=== PATIENT | male | born 1970 | race Caucasian/White ===

== ENCOUNTER 2023-07-24 08:39 | Inpatient (IN) ==
--- NOTE | 2023-06-22 12:43 | PAT Medication Instructions ---
Medication Instructions Date of Service June 22, 2023 Home Medications bupropion HCl 150 mg tablet,12 hr sustained-release (Wellbutrin SR) 150 mg PO BID simvastatin 40 mg tablet 40 mg PO QAM Take morning of surgery With a small sip of water, OTHERWISE NOTHING TO EAT OR DRINK AFTER MIDNIGHT: bupropion HCl 150 mg tablet,12 hr sustained-release (Wellbutrin SR) 150 mg PO BID simvastatin 40 mg tablet 40 mg PO QAM Take evening before surgery bupropion HCl 150 mg tablet,12 hr sustained-release (Wellbutrin SR) 150 mg PO BID Other Notes If you have any questions please call us at [phone] or [phone] or [phone] or [phone]
--- NOTE | 2023-07-05 11:58 | Anesthesiology Consultation ---
Date of Service July 05, 2023 Assessment & Plan (1) Encounter for pre-operative examination: Plan - awaiting [place] cardiology pre-operative evaluation 07/06/23. - [facility] ER 07/05/23: "...feeling tired and rundown for the past 2 weeks interm ittently...intermittently can feel a fluttering in his chest...having back surgery and they performed an EKG and found him to be in A-fib and referred him to the ER...Labs show mild leukocytosis 11.5 thousand...converted on his own while in the ER. Rate was in the 50s. [id number] 2 was 0. I discussed with Dr. Cody Paris from cardiology. Recommends no anticoagulation and metoprolol 25 mg XR and following up with his office as an outpatient. Patient was given a dose of metoprolol while here after he had converted. Discussed with the patient and he expressed understanding..." - new afib in PAT clinic, rate varying 95-118 bpm. I spoke with patient who states that he has been feeling tired over the past month-denied evaluation of this. Denies chest discomfort, shortness of breath, dizziness or lightheadedness. Denies any previous history of arrhythmia. He notes that previous imaging showed "calcifications in his vessels, carotid maybe." He remained stable in [facility] and we discussed risks of afib, he is agreeable to ER evaluation and was transported by wheelchair. Detailed report called to Kristin. - Patient and surgeon's office made aware patient will need cardiology evaluati on prior to surgery. - surgeon ordered PCP pre-operative evaluation. Chart Review Chart Review: Pending: Refer to Additional Notes / Consult section and Patient seen in Pre Admission Testing Teaching & Discussion Pre-Anesthesia Teaching/Discussion Notes: Instructed NPO after midnight before surgery, except medications with 15 cc of water. Medication instructions provided according to the PAT guidelines. History Surgery Operation Date: 07/24/23 07:45 Proposed Procedures p L5-S1 Decompression and Fusion, Spinal Cord Monitoring - Chano Pisano DO Height/Weight Height: 5 ft 10 in Weight: 119.6 kg Allergies Allergy/AdvReac Type Severity Reaction Status Date / Time No Known Allergies Allergy Verified 06/21/23 13:07 Medications Home Medications Medication Instructions Recorded Confirmed Last Taken bupropion HCl 150 mg tablet,12 hr 150 mg PO BID 06/21/23 06/21/23 Unknown sustained-release (Wellbutrin SR) simvastatin 40 mg tablet 40 mg PO QAM 06/21/23 06/21/23 Unknown metoprolol succinate 25 mg 25 mg PO DAILY #30 tabs 07/05/23 Unknown tablet,extended release 24 hr Past Medical History Medical History (Updated 07/06/23 @ 08:30 by Abby Santana PA-C) Disc degeneration, lumbar has numbness in left leg and occasional falls (no head injuries)-denies change or worsening History of COVID-19 (2020) not hospitalized, mild Hyperlipemia Paroxysmal A-fib at times in RVR Patient denies h/o stroke, seizures, heart attack, heart failure, DM, HTN, blood clots/DVTs or blood transfusions. Exercise / Class Metabolic Activity II 4-5 Yardwork/Stairs/Walk up hill (denies chest discomfort or shortness of breath with one flight of stairs) Past Surgical History Surgical History History of laparoscopic appendectomy (1991) Past Anesthesia History No Hx of Anesthesia Complications and No Family Hx of Anesthesia Complications History of PONV No Hx of PONV and No Hx of Motion Sickness Social History Smoking Status: Former smoker Do You Dip or Chew Tobacco: No Smoking End Date: Quit 06/11/23 - smoked 1 PPD ( on wellbutrin for this) Hx Alcohol Use: No Hx Substance Use: No substance use type: does not use Review of Systems Patient denies chest pain, shortness of breath, dyspnea on exertion, snoring, witnessed apneas, reflux, fever, chills, cough, or wheezing. Physical Exam Vital Signs Vitals BP 136/95 P 69 TEMP 97 SP02 97% on RA RESP 97.8 Physical Patient resting comfortably in chair in no acute distress, alert and oriented, responding appropriately throughout visit Full cervical extension range of motion without pain TMD 3.5 finger breadths Mallampati Score 2 Dentition: intact, denies chipped or loose teeth, caps/crowns, implants or bridges Lungs: normal respiratory effort. Good air movement, clear throughout to auscultation, no adventitious breath sounds Cardiac: irregularly irregular rhythm, no murmurs noted Carotid arteries: negative bruit bilat Lab Results Anesthesia Preop Results Results Anesthesia Widget: WBC 11.59 K/ul (4.8-10.8) H 07/05/23 Hgb 16.3 g/dl (14.0-18.0) 07/05/23 Hct 47.0 % (42.0-52.0) 07/05/23 Plt 185 K/uL (130-400) 07/05/23 Na 140 mmol/L (136-145) 07/05/23 K 4.7 mmol/L (3.5-5.1) 07/05/23 Cl 105 mmol/L (98-107) 07/05/23 CO2 29 mmol/L (21-32) 07/05/23 BUN 15 mg/dl (6-23) 07/05/23 Creat 1.31 mg/dl (0.6-1.4) 07/05/23 Glucose Level 83 mg/dl (70-99(Fasting)) 07/05/23 PT 10.3 Seconds (9.0-12.0) 07/05/23 PTT 27 Seconds (21-31) 07/05/23 INR 0.9 (0.9-1.1) 07/05/23 Urine Color Yellow 07/05/23 Urine Appearance Clear (Clear) 07/05/23 Urine pH 6.0 (4.5-7.5) 07/05/23 Urine Specific [place] 1.004 (1.000-1.030) 07/05/23 Urine Protein Negative (Negative) 07/05/23 Urine Glucose (UA) Negative (Negative) 07/05/23 Urine Ketones Negative (Negative) 07/05/23 Urine Blood Negative (Negative) 07/05/23 Urine Nitrite Negative (Negative) 07/05/23 Urine Bilirubin Negative (Negative) 07/05/23 Urine Urobilinogen Negative (Negative) 07/05/23 Urine Leukocyte Esterase Negative (Negative) 07/05/23 Blood Type O Positive 07/05/23 Antibody Screen NEGATIVE 07/05/23 Testing Electrocardiogram Date: 07/05/23 Afib with RVR, rate 119 bpm Chest X-Ray Date: 07/05/23 *1view* No acute cardiopulmonary findings.
[2023-07-24] MEDS ORDERED: ROCURONIUM BROMIDE 10 MG/ML 5 ML VIAL IV ONE ×2 (09:29→11:20)
[2023-07-24] MEDS ORDERED: GLYCOPYRROLATE 0.2 MG/ML VIAL ONE (09:29)
[2023-07-24] MEDS ORDERED: ONDANSETRON INJ 2 MG/ML 2 ML VIAL ONE (09:29)
[2023-07-24] MEDS ORDERED: PROPOFOL IV EMULSION 10 MG/ML 20 ML VIAL IV ONE (09:29)
[2023-07-24] MEDS ORDERED: MIDAZOLAM HCL 1 MG/ML 2ML VIAL ONE (09:29)
[2023-07-24] MEDS ORDERED: fentaNYL citrate PF 100 MCG/2 ML VIAL ONE (09:29)
[2023-07-24] MEDS ORDERED: SUGAMMADEX SODIUM 200 MG/2 ML VIAL IV ONE ×2 (09:30→10:57)
[2023-07-24] MEDS: LR 15ML/HR IV SCH (09:40)
[2023-07-24] MEDS: GABAPENTIN 900 MG DOSE PO SCH (09:40)
[2023-07-24] MEDS: CeleBREX 200 MG CAP PO SCH (09:41)
[2023-07-24] MEDS: ACETAMINOPHEN 500 MG TAB PO SCH (09:41)
--- NOTE | 2023-07-24 10:12 | History & Physical Report ---
Date of Service July 24, 2023 Assessment & Plan (1) Neurogenic claudication due to lumbar spinal stenosis: Plan: L5-S1 decompression and fusion History of Present Illness Chief Complaint: Back and leg pain Primary Care Provider: AMARA Hernandez This is a 73-year-old male presents with chronic persistent back and leg pain after failing course of nonoperative care is here for surgical invention. Allergies Allergy/AdvReac Type Severity Reaction Status Date / Time No Known Allergies Allergy Verified 07/24/23 09:17 Home Medications Medication Instructions Recorded Confirmed Type bupropion HCl 150 mg tablet,12 hr 150 mg PO BID 06/21/23 07/24/23 History sustained-release (Wellbutrin SR) metoprolol succinate 25 mg 25 mg PO DAILY #30 tabs 07/05/23 07/24/23 Rx tablet,extended release 24 hr simvastatin 40 mg tablet 20 mg PO QAM 07/06/23 07/24/23 History Past Med/Surg History Problem List (Updated 07/24/23 @ 10:11 by Chano Pisano DO) Neurogenic claudication due to lumbar spinal stenosis Anticoagulation therapy not indicated Sleep apnea Encounter for pre-operative examination Medical History Disc degeneration, lumbar History of COVID-19 (2020) Hyperlipemia Surgical History History of laparoscopic appendectomy (1991) Social History Smoking Status: Former smoker Tobacco Type: Cigarettes Smoking End Date: Quit 06/11/23 - smoked 1 PPD ( on wellbutrin for this); Second Hand Exposure: No; Do You Dip or Chew Tobacco: No; Tobacco Cessation Education Requested by Patient: No Hx Alcohol Use: No Hx Substance Use: No Preferred Language: [place] Communication Ability: Effective Neon Glass Bender Required: No Beliefs That Will Affect Care: None Current Living Situation: Significant Other Other Information That Helps Us Care for You: No Feels Safe at Home: Yes Safety Concerns: Feels Safe At This Time Assistive Devices: Glasses Physical Exam Physical Exam: Patient is alert and oriented Heart regular in rhythm Lungs clear Results & Data Results & Data Vital Signs (Past 12 Hours) Vital Signs Temp Pulse Resp BP Pulse Ox O2 Del Method 07/24/23 09:21 36.5 C 52 L 17 126/87 98 Room Air
--- NOTE | 2023-07-24 10:12 | History & Physical Bridge Note ---
Date of Service July 24, 2023 History & Physical Bridge Note I have examined the patient, reviewed the History & Physical and in the interval since the performance of the History & Physical I have noted the following changes of clinical significance: no changes noted
[2023-07-24] MEDS ORDERED: ONDANSETRON INJ 2 MG/ML 2 ML VIAL IV PRN ×2 (10:18→14:33)
[2023-07-24] MEDS ORDERED: ATROPINE SULFATE 0.1 MG/ML 10ML SYR IV PRN (10:18)
[2023-07-24] MEDS ORDERED: DROPERIDOL 5 MG/2 ML VIAL IV PRN (10:18)
[2023-07-24] MEDS: ceFAZolin 2000MG 2,000 MG/15 ML SYR IV SCH ×2 (10:53→19:29)
[2023-07-24] MEDS ORDERED: DEXAMETHASONE SOD INJ 4 MG/ML VIAL ONE (10:56)
[2023-07-24] MEDS ORDERED: KETAMINE HCL 10MG/ML SYR ONE (10:56)
[2023-07-24] MEDS: BUPIVACAINE/EPINEPHRINE 0.25% 1:200,000 30 ML VIAL ONE (11:19)
[2023-07-24] MEDS: ceFAZolin 330 MG/ML 1 GM VIAL ONE (12:13)
[2023-07-24] MEDS: FLOSEAL HEMOSTATIC MATRIX 10ML TOP ONE (12:23)
--- NOTE | 2023-07-24 12:23 | Operative Report ---
Post Operative Report Pre & Post Diagnosis Operation Date: 07/24/23 10:35 Pre-Op Diagnosis: Neurogenic Claudication due to Lumbar Spinal Stenosis Post-Op Diagnosis: Neurogenic Claudication due to Lumbar Spinal Stenosis I identified the patient and participated in the time-out.: Yes Procedure Operation Date: 07/24/23 10:35 Actual Procedures #1 lumbar decompression with bilateral medial facetectomies and foraminotomies L4-L5 L5-S1. #2 posterior spinal fusion L5-S1. #3 placed posterior instrumentation L5-S1. #4 interbody fusion L5-S1. #5 placement of Spira 15 x 26 mm x 2 at L5-S1. #6 placement locally harvested morselized autograft and posterior gutters. #7 placement of infuse collagen sponge combined with Koros in the posterior lateral gutters and Morpheus bone graft interbody space. Surgeon Chano Pisano, DO Bag Patcher Stacie Yepez Estimated Blood Loss 200 Findings See Below Patient is 5 foot 10 weighing over 119 kg with a BMI in excess of 37. The patient's body habitus did contribute to significant technical difficulty with positioning exposure and the procedure itself and at least 50% increased operative time. Specimens None Indications This is a 53-year-old male presents above-mentioned diagnosis of failed course of nonoperative care is here for surgical invention. Description of Procedure Patient was met with identified informed consent obtained. Patient was then taken to the operative suite underwent patient placed in a prone position on the Giovanny table on top of the Scott frame. All bony prominences well-padded eyes inspected to ensure no external precipice spinal. This point the lumbar spine was prepped and draped in a sterile fashion. Sharp dissection with the assistance of Bovie cautery form down to and exposing the lamina transverse processes of L5 and sacral ala bilaterally. From caudal cephalad fashion complete laminectomy of L5 was performed including bilateral medial facetectomies and foraminotomies addressing severe lateral recess and foraminal stenosis. Then performed a partial laminectomy of L4 including bilateral medial facetectomies addressing all lateral recess disease. Pedicle screws were then placed in L5 and S1 levels bilaterally with assistance of fluoroscopy and appropriate size samra placed. By way of transfer approach right discectomy L5-S1 was performed endplates. To subcortical mean bone and a 15 x 26 mm spiral cage filled with Morpheus bone graft tapped in position. Then proceeded to the left transforaminal region at L5-S1. Discectomy performed endplates guarded to subcortical bleeding bone and a second 15 x 26 mm spiral cage filled with Morpheus bone graft tapped in position. The rods were then locked in final position bilaterally. The transverse processes of L5 and sacral ala burred to subcortical bleeding bone. Infuse collagen sponge, with Koros and local autograft placed in the posterior gutters. 15 round DEV inserted. The incision was then closed with 1 Vicryl in the fascia 2-0 Vicryl subcutaneously and 4 Monocryl for final skin closure. Steri-Strips sterile dressing placed. Patient waken taken PACU stable condition. Please note spinal cord monitoring was utilized at the procedure no changes noted. Lastly Stacie Yepez was present at the entire surgery involved the patient positioning complex portions of the surgery and final skin closure. I attest to the content of the Intraoperative Record and any orders documented therein. Any exceptions are noted below.
[2023-07-24] MEDS: HYDROmorphone INJ 1 MG/ML SYRINGE IV PRN ×2 (12:51→13:11)
[2023-07-24] MEDS ORDERED: HYDROmorphone INJ 0.5 MG/0.5 ML SYR IV PRN ×2 (13:12→14:33)
--- NOTE | 2023-07-24 13:34 | Fluoroscopy Report ---
FL lumbar spine 2-3V CLINICAL HISTORY: L5-S1 DECOMP AND FUSION TECHNIQUE: 2 views were obtained with the C-arm in the OR with the above procedure. Total fluoroscopy time was 20.9 seconds. Radiation dose was 20.4 mGy. Comparison: None available at the time of this dictation. FINDINGS/IMPRESSION: Intraoperative images were obtained of L5-S1 decompression and fusion. Please correlate with intraoperative fluoroscopy and operative report. ACT 112: Negative or not required by law. Electronically signed by: Omar Hastings M.D. 07/24/2023 1:33 PM
--- NOTE | 2023-07-24 13:46 | Anesthesiology Progress Note ---
Date of Service July 24, 2023 Anesthesia Post Procedure Vital Signs Vital Signs: Temp Pulse Pulse Resp BP Pulse Ox O2 Del Method 07/24/23 13:15 57 L 12 117/75 91 Room Air 07/24/23 13:05 62 16 109/75 97 Oxymask 07/24/23 12:55 64 13 110/70 99 Oxymask 07/24/23 12:45 67 16 120/72 98 Oxymask 07/24/23 12:37 36.0 C L 65 14 146/98 H 98 Oxymask 07/24/23 09:21 36.5 C 52 L 17 126/87 98 Room Air O2 Flow Rate 07/24/23 13:15 07/24/23 13:05 2 07/24/23 12:55 2 07/24/23 12:45 4 07/24/23 12:37 6 07/24/23 09:21 Pain Intensity Left Lower Back: Pain Intensity: 6 Transfer of Care Handoff Completed per policy Notes Mental Status: alert / awake / arousable Patient Amnestic to Procedure: Yes Nausea / Vomiting: adequately controlled Pain: adequately controlled Airway Patency, RR, SpO2: stable & adequate BP & HR: stable & adequate Hydration State: stable & adequate Anesthetic Complications: no major complications apparent
--- NOTE | 2023-07-24 14:08 | Anesthesiology Progress Note ---
Date of Service July 24, 2023 Anesthesia Post Procedure Vital Signs Vital Signs: Temp Pulse Pulse Resp BP Pulse Ox O2 Del Method 07/24/23 14:00 46 L 15 115/80 94 Nasal Cannula 07/24/23 13:45 36.2 C L 52 L 12 109/78 94 Nasal Cannula 07/24/23 13:35 47 L 15 107/69 95 Nasal Cannula 07/24/23 13:25 63 15 107/79 91 Nasal Cannula 07/24/23 13:15 57 L 12 117/75 91 Room Air 07/24/23 13:05 62 16 109/75 97 Oxymask 07/24/23 12:55 64 13 110/70 99 Oxymask 07/24/23 12:45 67 16 120/72 98 Oxymask 07/24/23 12:37 36.0 C L 65 14 146/98 H 98 Oxymask 07/24/23 09:21 36.5 C 52 L 17 126/87 98 Room Air O2 Flow Rate 07/24/23 14:00 2 07/24/23 13:45 2 07/24/23 13:35 2 07/24/23 13:25 2 07/24/23 13:15 07/24/23 13:05 2 07/24/23 12:55 2 07/24/23 12:45 4 07/24/23 12:37 6 07/24/23 09:21 Pain Intensity Left Lower Back: Pain Intensity: 6 Transfer of Care Handoff Completed per policy Notes Mental Status: alert / awake / arousable Patient Amnestic to Procedure: Yes Nausea / Vomiting: adequately controlled Pain: adequately controlled Airway Patency, RR, SpO2: stable & adequate BP & HR: stable & adequate Hydration State: stable & adequate Anesthetic Complications: no major complications apparent
[2023-07-24] MEDS ORDERED: ALUMINUM/MAGNESIUM SUSP 30 ML UDC PO PRN (14:33)
[2023-07-24] MEDS ORDERED: bisacodyL 10 MG SUPP PR PRN (14:33)
[2023-07-24] MEDS ORDERED: traMADol HCL 50 MG TABLET PO PRN (14:33)
[2023-07-24] MEDS ORDERED: FAMOTIDINE 20 MG TAB PO PRN (14:33)
[2023-07-24] MEDS ORDERED: NALOXONE HCL 0.4 MG/1 ML VIAL/CARP IV PRN (14:33)
[2023-07-24] MEDS ORDERED: hydrOXYzine HCl 25 MG TAB PO PRN (14:33)
[2023-07-24] MEDS ORDERED: PROMETHAZINE HCL 12.5 MG in SODIUM CHLORIDE 0.9% 50 ML IV PRN (14:33)
[2023-07-24] MEDS ORDERED: DO NOT ADMINISTER FLU VACCINE PRN (14:33)
[2023-07-24] MEDS ORDERED: ACETAMINOPHEN 1,000 MG/100 ML VIAL IV PRN (14:33)
[2023-07-24] MEDS ORDERED: ONDANSETRON 4 MG OD TAB PO PRN (14:33)
[2023-07-24] MEDS ORDERED: METOCLOPRAMIDE HCL INJ 5 MG/ML 2 ML VIAL IV PRN (14:33)
[2023-07-24] MEDS ORDERED: LORazepam 0.5 MG TAB PO PRN (14:33)
[2023-07-24] MEDS ORDERED: DO NOT ADMINISTER PNEUMOCOCCAL VACCINE PRN (14:33)
[2023-07-24] MEDS ORDERED: SOD PHOSPHATE/SOD BIPHOSPHATE ENEMA 132 ML BTL PR PRN (14:33)
[2023-07-24] MEDS ORDERED: HYDROmorphone INJ 1 MG/ML SYRINGE IV PRN (14:33)
[2023-07-24] MEDS ORDERED: ACETAMINOPHEN 500 MG TAB PO PRN (14:33)
[2023-07-24] MEDS ORDERED: MAGNESIUM HYDROXIDE SUSP 30 ML UDC PO PRN (14:33)
[2023-07-24] MEDS ORDERED: LORazepam 0.5 MG in SYRINGE 0.25 ML IV PRN (14:33)
[2023-07-24] MEDS ORDERED: diphenhydrAMINE Capsule 25 MG CAP PO PRN (14:33)
[2023-07-24] MEDS: LR 60ML/HR IV SCH (15:08)
[2023-07-24] MEDS: LACTATED RINGER'S 1,000 ML IV SCH (15:10)
[2023-07-24] MEDS: KETOROLAC 30 MG/ML VIAL IV SCH (15:15)
--- NOTE | 2023-07-24 15:41 | Consultation ---
Date of Consultation July 24, 2023 Assessment & Plan (1) Neurogenic claudication due to lumbar spinal stenosis: (2) S/P lumbar spine operation: Jose Javier is a 53y/o M with PMHx of paroxysmal afib, hyperlipidemia, tobacco use disorder and other problems listed below who was referred to us for further post-operative medical management. Patient is s/p L5-S1 decompression and fusion w/ Dr. Pisano for treatment of neurogenic claudication 2/2 lumbar spine stenosis. POD#0, EBL: 200mL -Activity and wound care orders as per ortho -Pain control with bowel regimen as per ortho -PT consulted, repeat CBC/BMP in AM as per ortho -Monitor H/H for acute blood loss anemia and transfuse blood products PRN -Clear liquid diet as per ortho -Hemodynamically stable at this time (3) Paroxysmal atrial fibrillation: -Patient follows / [facility] Cardiology --> He is waiting to undergo sleep study to r/o sleep apnea as a potential cause of his PAF. 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 Powell. Please see addendum. I spent a total of 75 minutes coordinating, documenting, and providing care for this patient excluding time spent in the performance of separately billed services. This included personally reviewing all current laboratories and imaging studies, medical reconciliation, outpatient chart review and discussion with specialists. This chart was completed in part utilizing Speech Voice Recognition Software. Grammatical errors, random word insertions, pronoun errors, and incomplete sentences are an occasional consequence of this system due to software limitations, ambient noise, and hardware issues. Any formal questions or concerns about the content, text, or information contained within the body of this dictation should be directly addressed to the provider for clarification. Supervising Physician Co-Signing Physician Notes Patient was seen and examined at bedside as a consult for medical management after spinal surgery. Patient reports improvement in his LLE radicular pain, denies any febrile illness in the recent past. Patient reports operative site pain under control. Patient is hemodynamically stable and feels better. On examination: GENERAL: Alert and oriented x3. NAD, on RA.Obese class II HEENT: No pallor, no icterus. Pupils equal, round and reactive to light. Oral mucosa moist. NECK: No JVD, no neck masses. HEART: S1 and S2 heard. Regular rate and rhythm. No murmur, no gallop. RESPIRATORY SYSTEM: Normal AP diameter. No accessory muscle use. No wheezing, no crackles. ABDOMEN: Soft, bowel sounds present, nontender, no distention. CENTRAL NERVOUS SYSTEM: No facial droop. Speech is clear. Obeys simple commands. Moves extremities. EXTREMITIES: No edema, no erythema seen. Low back with clean dressing without soakage. DEV drain with moderate serosanguineous collection noted. I have seen and examined the patient and have discussed the case with the provider above. I agree with the assessment and plan as stated. History of Present Illness Requesting Physician: Chano Pisano DO Reason for Consultation: Post-Operative Medical Management Attending Physician: Chano Pisano DO History of Present Illness Jose Javier is a 53y/o M with PMHx of paroxysmal afib, hyperlipidemia, tobacco use disorder and other problems listed below who was referred to us for further post-operative medical management. Patient is s/p L5-S1 decompression and fusion w/ Dr. Pisano for treatment of neurogenic claudication 2/2 lumbar spine stenosis. History obtained from patient and associated chart review. Patient seen at bedside. Patient currently endorsing some discomfort/mild pressure in his lumbar region, but denies any pain. No SOB or chest pain. Has not yet urinated since being out of surgery. 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 Denies any abdominal pain. Tolerating liquids just fine, not complaining of any dysphagia concerns. Already had his DEV drain emptied once. Has not yet been out of bed, but wants to do so when able. Has no major complaints at this time, feeling well overall. Allergies Allergy/AdvReac Type Severity Reaction Status Date / Time No Known Allergies Allergy Verified 07/24/23 09:17 Home Medications Medication Instructions Recorded Confirmed Type bupropion HCl 150 mg tablet,12 hr 150 mg PO BID 06/21/23 07/24/23 History sustained-release (Wellbutrin SR) metoprolol succinate 25 mg 25 mg PO DAILY #30 tabs 07/05/23 07/24/23 Rx tablet,extended release 24 hr simvastatin 40 mg tablet 20 mg PO QAM 07/06/23 07/24/23 History Patient History Medical History Hyperlipidemia Tobacco use disorder Disc degeneration, lumbar has numbness in left leg and occasional falls (no head injuries)-denies change or worsening History of COVID-19 (2020) not hospitalized, mild Surgical History History of laparoscopic appendectomy (1991) Social History Smoking Status: Former smoker Tobacco Type: Cigarettes Smoking End Date: Quit 06/11/23 - smoked 1 PPD ( on wellbutrin for this); Second Hand Exposure: No; Do You Dip or Chew Tobacco: No; Tobacco Cessation Education Requested by Patient: No Hx Alcohol Use: No Hx Substance Use: No Preferred Language: Nauruan Communication Ability: Effective 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 Physical Exam Physical Exam: General Appearance: WD/WN, vitals as above, NAD, sitting up in bed, pleasant, conversing. Head: Normocephalic, atraumatic. Eyes: Normal inspection, PERRL, conjunctivae normal, anicteric sclerae. ENT: External ear and nose normal, oropharynx normal. Neck: Normal visual inspection, trachea midline, no thyromegaly. Respiratory: Normal respiratory effort, lungs clear to auscultation, no wheeze, rales, rhonchi. No accessory muscle use. Cardiovascular: Regular rate, rhythm, no murmur, normal peripheral pulses, no BLE edema. Vessels: No JVD. Chest: Normal inspection of chest. Abdomen/GI: Normal bowel sounds, soft, nontender, no hepatosplenomegaly. Extremities/Musculoskeletal: No cyanosis or clubbing, extremities motor strength 5/5. Neurologic: PERRL, EOMI, accommodation nl, no face palsy, no dysarthria, CN's II-XI not formally tested but appear intact bilaterally. DEV drain intact, draining appropriately. Psychiatric: A+Ox3, euthymic affect. Skin: No rashes, normal color, warm/dry. Results & Data Vital Signs (Past 12 Hours) Vital Signs Temp Pulse Pulse Pulse Resp BP Pulse Ox 07/24/23 15:29 36.8 C 71 16 123/77 97 07/24/23 15:25 36.3 C L 58 L 14 117/77 95 07/24/23 14:55 36.4 C L 64 14 112/75 95 07/24/23 14:25 36.4 C L 68 14 114/78 92 07/24/23 14:15 45 L 13 113/68 95 07/24/23 14:00 46 L 15 115/80 94 07/24/23 13:45 36.2 C L 52 L 12 109/78 94 07/24/23 13:35 47 L 15 107/69 95 07/24/23 13:25 63 15 107/79 91 07/24/23 13:15 57 L 12 117/75 91 07/24/23 13:05 62 16 109/75 97 07/24/23 12:55 64 13 110/70 99 07/24/23 12:45 67 16 120/72 98 07/24/23 12:37 36.0 C L 65 14 146/98 H 98 07/24/23 09:21 36.5 C 52 L 17 126/87 98 O2 Del Method O2 Flow Rate 07/24/23 15:29 Room Air 07/24/23 15:25 Room Air 07/24/23 14:55 Room Air 07/24/23 14:25 Room Air 07/24/23 14:15 Nasal Cannula 2 07/24/23 14:00 Nasal Cannula 2 07/24/23 13:45 Nasal Cannula 2 07/24/23 13:35 Nasal Cannula 2 07/24/23 13:25 Nasal Cannula 2 07/24/23 13:15 Room Air 07/24/23 13:05 Oxymask 2 07/24/23 12:55 Oxymask 2 07/24/23 12:45 Oxymask 4 07/24/23 12:37 Oxymask 6 07/24/23 09:21 Room Air Diagnostic Findings Lumbar Spine X-Ray 07/24/23 00:00 FL lumbar spine 2-3V CLINICAL HISTORY: L5-S1 DECOMP AND FUSION TECHNIQUE: 2 views were obtained with the C-arm in the OR with the above procedure. Total fluoroscopy time was 20.9 seconds. Radiation dose was 20.4 mGy. Comparison: None available at the time of this dictation. FINDINGS/IMPRESSION: Intraoperative images were obtained of L5-S1 decompression and fusion. Please correlate with intraoperative fluoroscopy and operative report. ACT 112: Negative or not required by law. Electronically signed by: Omar Hastings M.D. 07/24/2023 1:33 PM Medications Administered Acetaminophen (Acetaminophen 500 Mg Tab) 1,000 mg PO PREOP LEVI Stop: 07/24/23 18:00 Last Admin: 07/24/23 09:41 Dose: 1,000 mg Documented By: PRECIOUS Celecoxib (Celebrex 200 Mg Cap) 200 mg PO PREOP LEVI Stop: 07/24/23 18:00 Last Admin: 07/24/23 09:41 Dose: 200 mg Documented By: PRECIOUS Gabapentin (Gabapentin 900 Mg Dose) 900 mg PO PREOP LEVI Stop: 07/24/23 18:00 Last Admin: 07/24/23 09:40 Dose: 900 mg Documented By: PRECIOUS Hydromorphone HCl (Hydromorphone Inj 1 Mg/Ml Syringe) 0.25 mg IV Q5M PRN PRN Reason: Pain Stop: 07/24/23 18:00 Last Admin: 07/24/23 13:26 Dose: 0.25 mg Documented By: Admin: 07/24/23 13:21 Dose: 0.25 mg Documented By: Admin: 07/24/23 13:16 Dose: 0.25 mg Documented By: Admin: 07/24/23 13:11 Dose: 0.25 mg Documented By: TYREL Lactated Ringer's (Lr) 1,000 mls @ 15 mls/hr IV .Q24H LEVI Stop: 07/25/23 05:59 Last Infusion: 07/24/23 10:36 Dose: Infused Documented By: Admin: 07/24/23 09:40 Dose: 15 mls/hr Documented By: ALN Lactated Ringer's (Lr) 1,000 mls @ 60 mls/hr IV .[id number] [facility] Stop: 07/24/23 22:39 Last Admin: 07/24/23 15:08 Dose: Not Given Documented By: LMM Cefazolin Sodium (Ancef 2000mg) 2,000 mg in 15 mls @ 3.75 mls/min IV PREOP LEVI; Protocol Stop: 07/24/23 18:00 Last Admin: 07/24/23 10:53 Dose: 3.75 mls/min Documented By: EAK Lactated Ringer's (Lr) 1,000 mls @ 150 mls/hr IV .[id number] [facility] Stop: 08/23/23 14:32 Last Admin: 07/24/23 15:10 Dose: 150 mls/hr Documented By: LMM Ketorolac Tromethamine (Ketorolac 30 Mg/Ml Vial) 30 mg IV Q6H [facility] Stop: 07/25/23 09:01 Last Admin: 07/24/23 15:15 Dose: 30 mg Documented By: LMM Discontinued Medications Bupivacaine HCl/Epinephrine Bitart (Bupivacaine/Epinephrine 0.25% 1:200,000 30 Ml Vial) Confirm Administered Dose 30 ml .ROUTE .STK-MED ONE Stop: 07/24/23 10:22 Last Admin: 07/24/23 11:19 Dose: 25 ml Documented By: GMB Cefazolin Sodium (Cefazolin 330 Mg/Ml 1 Gm Vial) Confirm Administered Dose 990 mg .ROUTE .STK-MED ONE Stop: 07/24/23 10:22 Last Admin: 07/24/23 12:13 Dose: 990 mg Documented By: GMB Hydromorphone HCl (Hydromorphone Inj 1 Mg/Ml Syringe) 0.25 mg IV Q5M PRN PRN Reason: PACU Use Only-Pain Stop: 07/24/23 18:18 Last Admin: 07/24/23 13:06 Dose: 0.25 mg Documented By: Admin: 07/24/23 13:01 Dose: 0.25 mg Documented By: Admin: 07/24/23 12:56 Dose: 0.25 mg Documented By: Admin: 07/24/23 12:51 Dose: 0.25 mg Documented By: TYREL Miscellaneous ( Floseal Hemostatic Matrix 10ml) 10 ml TOP ONCE ONE Stop: 07/24/23 11:20 Last Admin: 07/24/23 12:23 Dose: 12 ml Documented By: JF (4) Hyperlipidemia Hyperlipidemia type: unspecified Qualified Code(s): E78.5 - Hyperlipidemia, unspecified
[2023-07-24] MEDS: DOCUSATE SODIUM/SENNA 50/8.6MG TAB PO SCH (20:21)
[2023-07-24] MEDS ORDERED: buPROPion SR 150 MG TABCR PO SCH (21:00)
[2023-07-25] MEDS: oxyCODONE HCL IR 5 MG TAB (IMMEDIATE RELEASE) PO PRN (00:13)
[2023-07-25] MEDS: POLYETHYLENE (MIRALAX) 17 GM PACK PO SCH (04:44)
[2023-07-25 07:21] LABS: Hematocrit (blood only) 39.4 % (42.0-52.0); Hemoglobin 13.4 g/dl (14.0-18.0); Mean Corpuscular Hemoglobin 31.4 pg (25.0-34.0); Mean Corpuscular Volume 92.3 fL (80.0-100.0); Mean Platelet Volume 12.5 fL (9.4-12.4); Platelet Count 171 K/uL (130-400); RDW Coefficient of Variation 12.4 % (11.5-14.5); Red Blood Count 4.27 M/uL (4.70-6.10); White Blood Count 33.96 K/ul (4.8-10.8)
[2023-07-25 07:22] LABS: Basophils # (auto) 0.05 K/uL (0.00-0.20); Basophils % (auto) 0.1 %; Immature Granulocytes # (auto) 0.47 K/uL (0.01-0.20); Immature Granulocytes % (auto) 1.4 %; Lymphocytes # (auto) 2.63 K/uL (1.20-3.40); Lymphocytes % (auto) 7.7 %; Monocytes # (auto) 1.75 K/uL (0.11-0.59); Monocytes % (auto) 5.2 %; Neutrophils # (auto) 29.06 K/uL (1.40-6.50); Neutrophils % (auto) 85.6 %; Polychromasia 1+
[2023-07-25 07:23] LABS: BUN Creatinine Ratio 14.3 (10-20); Calcium 9.1 mg/dl (8.6-10.3); Est GFR (African American) 80.9 ml/min; Est GFR (Non-African American) 69.8 ml/min; Potassium 4.5 mmol/L (3.5-5.1)
[2023-07-25] MEDS: SIMVASTATIN 20 MG TAB PO SCH (09:29)
[2023-07-25] MEDS: METOPROLOL SUCC 25MG EXT REL TAB PO SCH (09:29)
[2023-07-25] MEDS: dexAMETHasone 6 MG in SYRINGE 0 ML IV SCH (09:30)
--- NOTE | 2023-07-25 09:54 | Discharge Summary ---
Date of Service July 25, 2023 Admission HPI Per Admitting Provider This is a 73-year-old male presents with chronic persistent back and leg pain after failing course of nonoperative care is here for surgical invention. Principal Diagnosis Lumbar disc herniation with radiculopathy Discharge Data Allergies Allergy/AdvReac Type Severity Reaction Status Date / Time No Known Allergies Allergy Verified 07/24/23 09:17 Consultations 07/24/23 14:33 Consult Hospitalist Routine Procedures Performed Operation Date: 07/24/23 10:35 Actual Procedures p L5-S1 Decompression and Fusion, Spinal Cord Monitoring(Not Applicable) - Chano Pisano DO Ordered Studies 07/24/23 [place] lumbar spine 2-3V Routine Hospital Course (1) Neurogenic claudication due to lumbar spinal stenosis: Patient underwent lumbar laminectomy tolerates well was taken to orthopedic for postoperative. Postop ileus leg pain was resolved with. He is ambulating well. Pain well-controlled. Excellent strength testing. Subsidy discharged home. Discharge orders instructions from the chart for further review. Total Time Total Time Spent Total Time Spent (In Minutes): 20 minutes Discharge Plan Discharge Items Patient Disposition: Home - Self-Care Reason For Visit: Lumbar Spine Pain, Lumbar Disc Disease with Radicu Discharge Diagnosis: Lumbar spinal stenosis with radiculopathy Activity: As commented below Non-emergency contact: Primary Care Provider Call non-emergency contact if: you have any medication questions Follow-up/Referrals: Izabela Barr CRNP [Primary Care Provider] - Diet: Regular Addtl Attending Provider Instructions: ACTIVITY RECOMMENDATIONS: SELF CARE INSTRUCTIONS AFTER THORACIC/LUMBAR FUSIONS 1. You may walk to your tolerance. It is good exercise for your legs and back. Expect some back and intermittent leg aches and pains. 2. You may perform "counter-top" level activities (make a sandwich, helen with a project, etc.). 3. No bending or lifting of more than 10 pounds or back twisting of any nature (roll like a log when turning in bed). 4. You may ride in a car for 20-30 minutes at a time. No driving until after your first visit with your doctor. 5. Frequent changes of position and restricting sitting to 30 minutes at a time will help limit the amount of back spasms and stiffness you may experience. 6. You may discontinue the use of ambulatory aids (cane, crutches, etc.) once your strength and confidence allow. 7. You may labor standards director the shower and let water strike your incision when you arrive home at least once daily. Do not take a tub bath, sit in a hot tub or go into a swimming pool until after your first recheck in the office. SPECIAL CARE INSTRUCTIONS: VERY IMPORTANT TO READ AND REVIEW A. Your surgical incision has been closed with a cosmetic suture under the skin that will dissolve in about 6 weeks. In 14 days, you can use a pair of clean scissors and cut the suture that is left outside of the skin at the ends of your incision. 1. The small skin tapes can be removed 7 days after surgery if they have not fallen off by that point. 2. You may keep the wound open to air as much as possible to promote healing after post-op day number 5 unless told otherwise by your doctor. 3. If you think the wound looks like it is becoming infected (redness or worsening drainage) and/or you are experiencing fever, chill or worsening back pain and muscle spasms, contact the office so that we may evaluate you as soon as possible. B. Complications are uncommon, but please contact us if you have any signs or symptoms of: 1. wound infection (fever higher than 102.5 degrees F, redness, separation of wound, drainage, or increasing pain from the incision) 2. blood clots in legs (pain, swelling, redness and warmth in legs) 3. urinary tract infection (fever higher than 102.5 degrees F, burning upon urination or increased frequency of urination) 4. nerve problems (inability to walk on your toes or heels, numbness, loss of bowel or bladder control) 5. any other symptoms that concern you C. Please call the office at if you have any concerns or questions about your operation or recovery. D. No smoking! Smoking drastically decreases the chance of a solid fusion. E. Do not take any anti-inflammatory medications (Indocin, Advil, Motrin, Aspirin, Naprosyn, etc.) as these may inhibit the chance of a solid fusion. Tylenol is okay to take for pain. MANAGING PAIN AFTER SPINAL SURGERY 1. Narcotic medication is intended for short-term use and will be provided for surgical pain. Surgical pain usually lasts for a period of 4-6 weeks. Narcotic medication includes Percocet, Vicodin, Darvocet, Tylenol #3 or Lortab. 2. Longer-term pain is more appropriately treated with non-narcotic medication such as Tylenol ES. 3. Muscle spasm is not appropriately treated with narcotics. Muscle relaxers such as Soma, Flexeril or Skelaxin can be used along with Tylenol ES. 4. Remember that we all live with some "aches and pains". This is not unusual or uncommon after an injury or as we get older. a. Back pain is expected and may include muscle spasms for 4 to 6 weeks after surgery. The pain should gradually improve. If the pain worsens for no apparent reason, please contact the office. b. Intermittent leg pain may also be experienced and should not be concerned about unless it worsens for no apparent reason. If so, please contact the office. 5. We will provide appropriate medication within the normal guidelines of their prescribed use. We will also be very cautious and aware of potential abuse and extended duration of patients' medication needs. a. Pain medications are for your comfort and to assist with sleep and rest so that the tissue can heal. They are not provided in order to return to normal activity and should not be used through the day. To do so or worsening pain at night can result from ongoing tissue damage and dev elopment of tolerance to the prescribed medicine. 6. Please allow 2-3 days to process refills. Prescriptions will not be mailed but must be picked up at the office. FOLLOW UP VISIT: Keep your scheduled follow-up appointment. Any questions, please call the office at . Pending Studies at Discharge: No Stand-Alone Forms: [facility], Smoking Cessation Medications and DC Order Prescriptions: New tramadol 50 mg tablet 50 mg PO Q6H PRN (Reason: pain, moderate) Qty: 30 0RF oxycodone 5 mg tablet 5 mg PO Q6H PRN (Reason: pain) Qty: 30 0RF Continued bupropion HCl [Wellbutrin SR] 150 mg Tablet Sustained-Release 12 Hr 150 mg PO BID simvastatin 40 mg tablet 20 mg PO QAM metoprolol succinate 25 mg tablet extended release 24 hr 25 mg PO DAILY Qty: 30 0RF Discharge Orders: Discharge Order (Routine); Ordered 07/25/23 Ordered By: Chano Pisano Admission Data Admit Date/Time: 07/24/23 12:28 Attending Provider: Chano Pisano Admit Provider: Chano Pisano Primary Care Provider: Izabela Barr Other Providers: Shabana Arvizu; Jonathan Delatorre
--- NOTE | 2023-07-25 09:56 | Orthopedic Progress Note ---
Date of Service July 25, 2023 Assessment & Plan (1) Neurogenic claudication due to lumbar spinal stenosis: Plan: At this time continue physical therapy monitor DEV output hopefully discharge home next few days. Admission and Anticipated Discharge Date Admission Date: July 24, 2023 Subjective Back pain controlled leg symptoms markedly improved Physical Exam Physical Exam: Patient is up and ambulating halls. Distracted testing. Is comfortable. Results & Data Vital Signs (Past 12 Hours) Vital Signs Temp Pulse Resp BP Pulse Ox O2 Del Method 07/25/23 06:59 36.4 C L 62 16 104/68 98 Room Air 07/25/23 02:45 36.8 C 86 16 116/77 95 Room Air 07/24/23 23:02 36.6 C 58 L 17 113/80 96 Room Air Queries Orthopedic Spine Obesity: Yes
--- NOTE | 2023-07-25 16:15 | Hospitalist Progress Note ---
Date of Service July 25, 2023 Assessment & Plan (1) Neurogenic claudication due to lumbar spinal stenosis: (2) S/P lumbar spine operation: Plan: per previous hospitalist notes with addendum: Jose Javier is a 53y/o M with PMHx of paroxysmal afib, hyperlipidemia, tobacco use disorder and other problems listed below who was referred to us for further post-operative medical management. Patient is s/p L5-S1 decompression and fusion w/ Dr. Pisano for treatment of neurogenic claudication 2/2 lumbar spine stenosis. POD#0, EBL: 200mL -Activity and wound care orders as per ortho -Pain control with bowel regimen as per ortho -PT consulted, repeat CBC/BMP in AM as per ortho -Monitor H/H for acute blood loss anemia and transfuse blood products PRN -Clear liquid diet as per ortho -Hemodynamically stable at this time (3) Paroxysmal atrial fibrillation: Plan: -Patient follows / [facility] Cardiology --> He is waiting to undergo sleep study to r/o sleep apnea as a potential cause of his PAF. 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 Please do not hesitate to contact any [facility] hospitalist steam table worker for any questions. Admission and Anticipated Discharge Date Admission Date: July 24, 2023 Subjective Follow-up status post back surgery, etc. Seen resting in bed, comfortable. States he feels fine overall Ambulated in the hallways today with no shortness of breath, dizziness, chest pain, palpitations No other new symptoms Review of Systems Review of Systems: all noted and negative except for above Physical Exam Physical Exam: General- oriented x 3, not in distress, speaks in sentences with no effort or accessory muscle use Eyes- anicteric Neck- no JVD Lungs- clear breath sounds bilaterally, no rales/wheezes Heart- normal rate, regular rhythm; no murmurs Abdomen- normal bowel sounds, nondistended, soft, nontender Extremities- no pretibial edema, no calf tenderness Neuro- alert, oriented x 3; no gross focal neurologic deficits Skin- warm & dry Results & Data Results & Data Vital Signs (Past 12 Hours) Vital Signs Temp Pulse Resp BP Pulse Ox O2 Del Method 07/25/23 14:06 36.6 C 61 16 117/71 96 Room Air 07/25/23 06:59 36.4 C L 62 16 104/68 98 Room Air all noted and reviewed including below (4) Hyperlipidemia Hyperlipidemia type: unspecified Qualified Code(s): E78.5 - Hyperlipidemia, unspecified
[2023-07-26] MEDS: COUGH DROP (SUGAR FREE) LOZ 24 LOZ/1 BOX BUCCAL ONE (01:58)
[2023-07-26 08:00] LABS: Basophils # (auto) 0.04 K/uL (0.00-0.20); Basophils % (auto) 0.2 %; Eosinophils # (auto) 0.01 K/uL (0.00-0.50); Hematocrit (blood only) 35.3 % (42.0-52.0); Hemoglobin 12.1 g/dl (14.0-18.0); Immature Granulocytes % (auto) 1.2 %; Lymphocytes # (auto) 3.72 K/uL (1.20-3.40); Lymphocytes % (auto) 14.3 %; Mean Corpuscular Hemoglobin 31.8 pg (25.0-34.0); Mean Corpuscular Hgb Conc 34.3 g/dL (32.0-36.0); Mean Corpuscular Volume 92.7 fL (80.0-100.0); Mean Platelet Volume 12.1 fL (9.4-12.4); Monocytes # (auto) 2.08 K/uL (0.11-0.59); Neutrophils % (auto) 76.3 %; Platelet Count 143 K/uL (130-400); RDW Coefficient of Variation 12.7 % (11.5-14.5); Red Blood Count 3.81 M/uL (4.70-6.10); White Blood Count 25.95 K/ul (4.8-10.8)
[2023-07-26 08:31] LABS: BUN Creatinine Ratio 19.2 (10-20); Calcium 9.1 mg/dl (8.6-10.3); Creatinine Clr Calc Pharmacy 93.2 ml/min; Est GFR (African American) 80.1 ml/min; Est GFR (Non-African American) 69.1 ml/min; Potassium 4.3 mmol/L (3.5-5.1)
--- NOTE | 2023-07-26 09:36 | Discharge Summary ---
Date of Service July 26, 2023 Admission HPI Per Admitting Provider This is a 73-year-old male presents with chronic persistent back and leg pain after failing course of nonoperative care is here for surgical invention. Admission Exam (Per Admitting) Constitutional WD/WN, vitals as above Eyes normal visual stanley by confrontation ENMT external ear and nose normal, oropharynx normal Neck normal visual inspection Respiratory normal respiratory effort Cardiovascular Extremities: normal capillary refill Gastrointestinal (Abdomen) Inspection/Auscultation: abdomen normal to inspection Musculoskeletal Spine: + pain with thoraco-lumbar ROM Skin no rashes, warm and dry Neurologic normal touch/pain/proprioception and moves all extremities Psychiatric A+Ox3, euthymic affect Eye Contact: good eye contact Discharge Data Consultations 07/24/23 14:33 Consult Hospitalist Routine Procedures Performed Operation Date: 07/24/23 10:35 Actual Procedures p L5-S1 Decompression and Fusion, Spinal Cord Monitoring(Not Applicable) - Chano Pisano, Hospital Course (1) Neurogenic claudication due to lumbar spinal stenosis: Jose is being discharged home on postoperative day 2 status post lumbar decompression and fusion of L5-S1. He had an uneventful hospital course. Lab values stable. Pain controlled. He had a bowel movement. Discharge Instructions ACTIVITY RECOMMENDATIONS: SELF CARE INSTRUCTIONS AFTER THORACIC/LUMBAR FUSIONS 1. You may walk to your tolerance. It is good exercise for your legs and back. Expect some back and intermittent leg aches and pains. 2. You may perform "counter-top" level activities (make a sandwich, helen with a project, etc.). 3. No bending or lifting of more than 10 pounds or back twisting of any nature (roll like a log when turning in bed). 4. You may ride in a car for 20-30 minutes at a time. No driving until after your first visit with your doctor. 5. Frequent changes of position and restricting sitting to 30 minutes at a time will help limit the amount of back spasms and stiffness you may experience. 6. You may discontinue the use of ambulatory aids (cane, crutches, etc.) once your strength and confidence allow. 7. You may measurement superintendent the shower and let water strike your incision when you arrive home at least once daily. Do not take a tub bath, sit in a hot tub or go into a swimming pool until after your first recheck in the office. SPECIAL CARE INSTRUCTIONS: VERY IMPORTANT TO READ AND REVIEW A. Your surgical incision has been closed with a cosmetic suture under the skin that will dissolve in about 6 weeks. In 14 days, you can use a pair of clean scissors and cut the suture that is left outside of the skin at the ends of your incision. 1. The small skin tapes can be removed 7 days after surgery if they have not fallen off by that point. 2. You may keep the wound open to air as much as possible to promote healing after post-op day number 5 unless told otherwise by your doctor. 3. If you think the wound looks like it is becoming infected (redness or worsening drainage) and/or you are experiencing fever, chill or worsening back pain and muscle spasms, contact the office so that we may evaluate you as soon as possible. B. Complications are uncommon, but please contact us if you have any signs or symptoms of: 1. wound infection (fever higher than 102.5 degrees F, redness, separation of wound, drainage, or increasing pain from the incision) 2. blood clots in legs (pain, swelling, redness and warmth in legs) 3. urinary tract infection (fever higher than 102.5 degrees F, burning upon urination or increased frequency of urination) 4. nerve problems (inability to walk on your toes or heels, numbness, loss of bowel or bladder control) 5. any other symptoms that concern you C. Please call the office at if you have any concerns or que stions about your operation or recovery. D. No smoking! Smoking drastically decreases the chance of a solid fusion. E. Do not take any anti-inflammatory medications (Indocin, Advil, Motrin, Aspirin, Naprosyn, etc.) as these may inhibit the chance of a solid fusion. Tylenol is okay to take for pain. MANAGING PAIN AFTER SPINAL SURGERY 1. Narcotic medication is intended for short-term use and will be provided for surgical pain. Surgical pain usually lasts for a period of 4-6 weeks. Narcotic medication includes Percocet, Vicodin, Darvocet, Tylenol #3 or Lortab. 2. Longer-term pain is more appropriately treated with non-narcotic medication such as Tylenol ES. 3. Muscle spasm is not appropriately treated with narcotics. Muscle relaxers such as Soma, Flexeril or Skelaxin can be used along with Tylenol ES. 4. Remember that we all live with some "aches and pains". This is not unusual or uncommon after an injury or as we get older. a. Back pain is expected and may include muscle spasms for 4 to 6 weeks after surgery. The pain should gradually improve. If the pain worsens for no apparent reason, please contact the office. b. Intermittent leg pain may also be experienced and should not be concerned about unless it worsens for no apparent reason. If so, please contact the office. 5. We will provide appropriate medication within the normal guidelines of their prescribed use. We will also be very cautious and aware of potential abuse and extended duration of patients' medication needs. a. Pain medications are for your comfort and to assist with sleep and rest so that the tissue can heal. They are not provided in order to return to normal activity and should not be used through the day. To do so or worsening pain at night can result from ongoing tissue damage and development of tolerance to the prescribed medicine. 6. Please allow 2-3 days to process refills. Prescriptions will not be mailed but must be picked up at the office. FOLLOW UP VISIT: Keep your scheduled follow-up appointment. Any questions, please call the office at .
--- NOTE | 2023-07-26 16:33 | Hospitalist Progress Note ---
Date of Service July 26, 2023 Assessment & Plan (1) Neurogenic claudication due to lumbar spinal stenosis: (2) S/P lumbar spine operation: Plan: Jose Javier is a 53y/o M with PMHx of paroxysmal afib, hyperlipidemia, tobacco use disorder and other problems listed below who was referred to us for further post-operative medical management. Patient is s/p L5-S1 decompression and fusion w/ Dr. Pisano for treatment of neurogenic claudication 2/2 lumbar spine stenosis. POD#3, EBL: 200mL -Activity and wound care orders as per ortho -Pain control with bowel regimen as per ortho -PT consulted, Labs reviewed; patient had leukocytosis with WBC count of 33,000 which down trended to 25,000. Patient denies any fever, chills, chest pain, shortness of breath, cough, abdominal pain, urinary urgency or frequency. Vitals reviewed; patient has not been febrile. The likely cause for the leukocytosis is stress related/steroid induced. I discussed with patient about close follow-up with his primary care doctor and repeating CBC which patient is agreeable with. I also discussed patient to seek medical advice if he has symptoms of infection which could include but not limited to fever, chills, cough, generalized weakness and fatigue. Patient verbalized understanding. (3) Paroxysmal atrial fibrillation: Plan: -Patient follows / [facility] Cardiology --> He is waiting to undergo sleep study to r/o sleep apnea as a potential cause of his PAF. 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 Please do not hesitate [facility] power [facility] for any questions. Admission and Anticipated Discharge Date Admission Date: July 24, 2023 Subjective Patient seen and examined at bedside. Comfortable; not in distress. Denies fever, chills, chest pain, shortness of breath, abdominal pain or urinary symptoms. No significant overnight events Review of Systems Review of Systems: All systems reviewed & are unremarkable except as noted in Subjective Results & Data Results & Data Vital Signs (Past 12 Hours) Vital Signs Temp Pulse Pulse Resp BP BP Pulse Ox 07/26/23 10:43 36.6 C 64 56 L 16 130/82 100/65 98 07/26/23 07:29 36.6 C 56 L 16 130/82 98 O2 Del Method 07/26/23 10:43 07/26/23 07:29 Room Air (4) Hyperlipidemia Hyperlipidemia type: unspecified Qualified Code(s): E78.5 - Hyperlipidemia, unspecified
== END 2023-07-26 13:45 | disposition home or self-care (01) | DRG 455 ==
LOC: ASU 08:39 → 3W 12:28